=== PATIENT | female | born 1985 ===

== ENCOUNTER 2020-07-26 05:59 | Day surgery (SDC) | payer OTHER ==
[~2020-07-26 05:59] MED LIST: CELEXA10 MG PO; PEPCID AC20 MG PO
== END 2020-07-26 16:05 | disposition home or self-care (01) ==
LOC: CIR.AMB 05:59
PROVIDERS: ATTEND Obstetrics & Gynecology
DX: N73.6 Female pelvic peritoneal adhesions (postinfective) (principal); Z20.828 Contact with and (suspected) exposure to other viral communicable diseases